=== PATIENT | female | born 1975 | race Caucasian/White ===

== ENCOUNTER 2020-08-17 21:35 | Emergency (ER) | payer OTHER ==
[2020-08-17 22:06] LABS: Pregnancy Test - Urine (BHCG) Negative (Negative); Pregu Control Background? CLEAR/WHITE (CLR/WHITE); Pregu Control Bar Appear? YES (CONTROL BAR); Specific Gravity 1.025 (1.002-1.036)
[2020-08-17 22:07] LABS: Bacteria/HPF Rare-Few HPF (None Seen); Mucous/LPF 4+ LPF (<2+)
[2020-08-17] MEDS ORDERED: Ciprofloxacin 500 MG TAB ONE (22:25)
== END 2020-08-17 22:34 | disposition home or self-care (01) ==
LOC: MADERS 21:35
DX: N30.00 Acute cystitis without hematuria (principal); F17.210 Nicotine dependence, cigarettes, uncomplicated; Z79.899 Other long term (current) drug therapy
CPT/HCPCS: 81015; 81025; 87086; 99284